=== PATIENT | female | born 1990 | race Caucasian/White ===

== ENCOUNTER 2024-06-19 20:10 | Emergency (ER) | payer OTHER ==
[2024-06-19 20:27] VITALS: BP 126/87; PULSE 108; RESP 18; TEMP 97.6; BMI 22.6
[2024-06-19] MEDS ORDERED: DIPHTH,PERTUSS(ACELL),TET 0.5 ML DISP.SYRIN IM ONE (21:10)
[2024-06-19] MEDS: DIPHTH,PERTUSS(ACELL),TET 0.5 ML DISP.SYRIN IM ONE (21:13)
== END 2024-06-19 22:30 | disposition home or self-care (01) ==
LOC: JERFT 20:10
PROC: 0YQGXZZ Repair Left Knee Region, External Approach (ICD-10-PCS; principal; 2024-06-19)
PROC: 3E0234Z Introduction of Serum, Toxoid and Vaccine into Muscle, Percutaneous Approach (ICD-10-PCS; 2024-06-19)
DX: S81.012A Laceration without foreign body, left knee, initial encounter (principal); V03.131A Pedestrian on standing electric scooter injured in collision with car, pick-up or van in traffic accident, initial encounter; Y92.410 Unspecified street and highway as the place of occurrence of the external cause; Z23 Encounter for immunization
CPT/HCPCS: 90715; 99283-25